=== PATIENT | female | born 1985 | race Caucasian/White ===

== ENCOUNTER 2017-03-16 05:54 | Emergency (ER) | payer BC, MEDICAID ==
[~2017-03-16] VITALS: Ht 165.1 cm; Wt 70.3 kg
[~2017-03-16 05:54] MED LIST: BACTRIM DS TAB1 EACH PO; DERMOPLAST PA82.5 ML TP; IBUPROFEN 800800 M1 PO; LANOLIN56 GM TOP; OSELB75 PO; PHENERGAN-CODE120 ML PO; PRENATAL PO; SPACERCHILD; TUCKS1 EAC1 TOP
[2017-03-16] MEDS ORDERED: MIRENA1 EACH (06:05)
[2017-03-16 06:09] LABS: URINE BILIRUBIN NEGATIVE (Negative); URINE BLOOD TRACE (Negative); URINE CLARITY CLEAR; URINE COLOR YELLOW; URINE GLUCOSE-RANDOM NEGATIVE (Negative); URINE KETONES NEGATIVE (Negative); URINE LEUKOCYTES-REFLEX NEGATIVE (Negative); URINE NITRITE-REFLEX NEGATIVE (Negative); URINE PROTEIN TRACE (Negative); URINE SPECIFIC GRAVITY >= 1.030 (1.005-1.030); URINE UROBILINOGEN 0.2 E.U./dl (0.2-1.0)
[2017-03-16 06:34] LABS: ABSOLUTE EOSINOPHILS 0.2 thou/uL (0.0-0.7); ABSOLUTE LYMPHOCYTES 2.6 thou/uL (0.8-5.3); ABSOLUTE MONOCYTES 0.6 thou/uL (0.0-1.2); ABSOLUTE NEUTROPHILS 4.9 thou/uL (1.6-8.1); BASOPHILS 0.5 %; EOSINOPHILS 1.9 %; HEMATOCRIT 41.8 % (37.0-47.0); HEMOGLOBIN 14.1 gm/dL (12.0-15.0); MCH 30.9 pg (26.0-34.0); MCHC 33.6 g/dL (28.0-37.0); MCV 91.8 fL (80.0-100.0); MONOCYTES 7.5 %; MPV 7.2 fl. (7.2-11.1); NUCLEATED RBCS 0 /100WBC; PLATELET COUNT* 259 thou/uL (150-400); POLYS 59.1 %; RBC 4.55 mil/uL (4.20-5.00); RDW-CV 12.7 % (10.5-14.5); WBC 8.3 thou/uL (4.0-11.0)
[2017-03-16 06:41] LABS: CALCIUM 8.8 mg/dL (8.5-10.1); CREATININE 0.7 mg/dL (0.6-1.3); POTASSIUM 4.2 mmol/L (3.5-5.1)
[2017-03-16 06:46] LABS: ALBUMIN 3.6 g/dL (3.4-5.0); TOTAL BILIRUBIN 0.3 mg/dL (<0.1-1.0); TOTAL PROTEIN 7.1 g/dL (6.4-8.2)
[2017-03-16] MEDS ORDERED: ULTRAM 50MG TAB50 MG PO (08:35)
[2017-03-16] MEDS ORDERED: CIPROFLOXACIN500 M1 PO (08:35)
[2017-03-16] MEDS ORDERED: DIFLUCAN150 MG PO (08:37)
[2017-03-16 08:59] VITALS: BP 106/66
== END 2017-03-16 08:59 | disposition home or self-care (01) ==
LOC: M.ERS 05:54
PROVIDERS: Emergency Medicine Emergency Medical Services
DX: R30.0 Dysuria (principal)